=== PATIENT | male | born 1950 | race African-American/Black ===

== ENCOUNTER 2019-08-28 13:34 | Inpatient (IN) | payer MEDICARE, OTHER ==
[2019-08-28] VITALS (246 sets, daily range): BP systolic 143–173; BP diastolic 78–95; PULSE 90–98; TEMP 98.2–98.6; O2SAT 86–100
[~2019-08-28] VITALS: Ht 182.9 cm; Wt 100.3 kg
[2019-08-28] MEDS ORDERED: PROAIR HFA0.09 MG/AC IH (15:31)
[2019-08-28] MEDS ORDERED: NORVASC 10MG10 MG PO (15:31)
[2019-08-28] MEDS ORDERED: IMDUR 30MG30 MG/TAB PO (15:31)
[2019-08-28] MEDS ORDERED: CRESTOR5 MG PO (15:32)
[2019-08-28] MEDS ORDERED: MELATONIN5 M1 SL (15:32)
[2019-08-28 17:14] LABS: RETIC # 0.05 M/mm3 (0.02-0.16); RETIC % 1.5 % (0.5-3.52)
[2019-08-28 17:44] LABS: IRON,SERUM 16 ug/dL (35-150)
[2019-08-28 17:53] LABS: TOTAL IRON BINDING CAPACITY 337 ug/dL (261-462)
--- NOTE | 2019-08-28 18:26 | NUR ---
Assessment completed, alert/oriented, vital signs stable/ afebrile, denies pain, patient is labored breathing/ lungs diminished and coarse, patient was swabbed for COVID screen at [facility] but after assessing and evaluating the patient the Hospitalist said we did not need to isolate the patient and he did not meet criteria to be a PUI, CXR at [facility] confirmed left sided pleural effussion/ orders for thoracentesis 08/29/19 entered, heart RRR/distal pulses are palapble, patient denies other needs at this time
--- NOTE | 2019-08-28 20:11 | NUR ---
Blood transfusion started at 2003. Assessment complete. Right lower lobe and and left lung dimished. Right uppepr lobe clear. Heart sounds normal. Bowels active x4. Pulses present throughout. No edema noted. INT right AC without complications. IV left AC infusing blood without complications at this time. Denies pain. Educated regarding transfusion reactions. Denies needs at this time. Remained at bedside for first 15 mintues. Call light in reach.
--- NOTE | 2019-08-28 22:04 | NUR ---
Patient blood pressures consistently elevated. Patient reports has not taken norvasc 10mg today. Spoke with Pooja Cleveland to give dose now.
--- NOTE | 2019-08-28 22:45 | NUR ---
Transfusion complete at this time. Tolerated well. Denies needs at this time. Call light in reach.
[2019-08-29] VITALS (385 sets, daily range): BP systolic 147–180; BP diastolic 67–90; PULSE 85–98; TEMP 98.2–99.5; O2SAT 79–100
--- NOTE | 2019-08-29 00:07 | NUR ---
Patient systolic BP 162. Clarified with lorenza Patton APRN with patient in 160s. Added order for hydralazine for 170/100. Will monitor.
--- NOTE | 2019-08-29 01:09 | NUR ---
Patient reports inability to sleep. Provided with PRN melatonin. Denies other needs at this time. Call light in reach.
--- NOTE | 2019-08-29 03:30 | NUR ---
Patient continues to have shortness of breath. Attempted oxymask due to mouth breathing. Patient did not tolerate oxymask. Changed back to nasal cannula with humadified oxygen. Assisted patient with nasal clearing. Reports easier to breathe. Denies other needs. Will continue to monitor.
--- NOTE | 2019-08-29 04:42 | NUR ---
Patient blood pressure 177 systolic, rechecked 180. Provided with PRN hydralazine at this time.
--- NOTE | 2019-08-29 06:19 | NUR ---
Patient continued to have shortness of breath throughout night with productive cough (clear thick sputum). Remained on 2 liters nasal cannula with oxygen saturations in mid to high 90s. Given x1 dose of hydralazine for systolic BP of 180. Resting in bed currently. Denies needs at this time. Call light in reach. Will continue to monitor.
[2019-08-29 06:42] LABS: BASO % 0.6 % (0.0-2.0); EOS # 0.2 (0.0-0.7); EOS % 2.7 % (0-4.0); GRAN % 58.1 % (42.2-75.2); LYMPH % 29.1 % (20.0-51.0); MEAN CELL VOLUME 69 fl (80.0-100.0); MEAN CORPUSCULAR HGB CONC 26 g/dl (33.0-37.0); MEAN PLATELET VOLUME 10.4 fl (7.4-10.4); MONO # 0.6 (0.1-0.6); MONO % 8.6 % (1.7-9.3); PLATELET COUNT 298 K/mm3 (130-400); RED BLOOD COUNT 3.33 M/mm3 (4.20-5.60); REDCELL DISTRIBUTION WIDTH-CV 23.3 % (11.5-14.5)
[2019-08-29 06:51] LABS: HEMATOCRIT 22.8 % (42.0-52.0); HEMOGLOBIN 5.9 g/dl (13.5-18.0); MEAN CORPUSCULAR HEMOGLOBIN 18 pg (27.0-31.0)
--- NOTE | 2019-08-29 06:52 | NUR ---
Lab called stating patient HGB 5.9 this AM. Left voicemail for Dr. Orozco requesting call back.
[2019-08-29 06:54] LABS: ALBUMIN 3.6 gm/dL (3.5-5.0); BILIRUBIN,TOTAL 0.5 mg/dL (0.0-1.0); CALCIUM 9.8 mg/dL (8.4-10.2); CREATININE, serum 1.71 (0.66-1.25); POTASSIUM 3.5 mmol/L (3.4-5.0)
--- NOTE | 2019-08-29 06:54 | NUR ---
Spoke with Dr. Orozco-order one unit of PRBC. Will add order and notify lab.
[2019-08-29 06:57] LABS: INR 1.1 (0.8-3.0); PROTHROMBIN TIME 12.8 SECONDS (9.7-12.8)
--- NOTE | 2019-08-29 07:26 | NUR ---
Report given to NIKITA Lowry
[2019-08-29 12:15] LABS: PLEURAL FLUID RBC 1000 /mm3 (0-0); PLEURAL FLUID WBC 650 /mm3
[2019-08-29 12:19] LABS: PLEURAL FLUID APPEARANCE CLEAR; PLEURAL FLUID COLOR YELLOW
[2019-08-29 12:23] LABS: GLUCOSE,PLEURAL FLUID 107 mg/dL; TOTAL PROTEIN,PLEURAL FLUID 4.4 gm/dL
[2019-08-29 17:55] LABS: HEMATOCRIT 27.8 % (42.0-52.0); HEMOGLOBIN 7.6 g/dl (13.5-18.0)
[2019-08-29 18:54] LABS: FOLATE (FOLIC ACID) 5.3 ng/mL (7.0-31.4)
[2019-08-29 19:27] LABS: PROCALCITONIN 0.6 ng/mL (0.00-0.09)
--- NOTE | 2019-08-29 19:47 | NUR ---
Report given to NIKITA Chau
--- NOTE | 2019-08-29 21:00 | NUR ---
Received report from HELPER TEACHER, Rylee at 1946. Pt arrived to medical unit room 309 via WC at 2009. Alert and oriented x4. Ambulatory. C/O pain to left side chest from proceudre, rate 3/10, tolerable. Denies SOB, on 2LO2NC. Tele monitor in place, leads checked. INT to RAC intact, flushed, dressing CDI. IV to LAC intact with fluids infusing, dressing CDI. [place] box given to pt as requested. Needs met at this time. Call light within reach.
[2019-08-30] VITALS (7 sets, daily range): BP systolic 134–164; BP diastolic 57–79; PULSE 85–101; TEMP 98–99.1
--- NOTE | 2019-08-30 06:12 | NUR ---
Pt had episode of bloody stool with moderate amount of bright red blood observed in toilet and tissue. Will endorse to oncoming RN. Scheduled meds adminsitered. Needs attended too. Call light within reach.
[2019-08-30 06:55] LABS: BASO % 0.5 % (0.0-2.0); EOS # 0.2 (0.0-0.7); EOS % 2.7 % (0-4.0); GRAN # 4.5 (1.4-6.5); GRAN % 54.9 % (42.2-75.2); LYMPH # 2.8 (1.2-3.4); LYMPH % 33.6 % (20.0-51.0); MEAN CELL VOLUME 71 fl (80.0-100.0); MEAN CORPUSCULAR HGB CONC 27 g/dl (33.0-37.0); MONO # 0.6 (0.1-0.6); MONO % 7.7 % (1.7-9.3); PLATELET COUNT 294 K/mm3 (130-400); RED BLOOD COUNT 4.11 M/mm3 (4.20-5.60); REDCELL DISTRIBUTION WIDTH-CV 24.6 % (11.5-14.5)
[2019-08-30 07:04] LABS: CREATININE, serum 1.76 (0.66-1.25); MAGNESIUM 1.7 mg/dL (1.6-2.3); POTASSIUM 3.8 mmol/L (3.4-5.0)
--- NOTE | 2019-08-30 07:19 | NUR ---
Report given to NIKITA Kumar.
[2019-08-30 07:22] LABS: HEMATOCRIT 29.1 % (42.0-52.0); HEMOGLOBIN 7.8 g/dl (13.5-18.0); MEAN CORPUSCULAR HEMOGLOBIN 19 pg (27.0-31.0)
--- NOTE | 2019-08-30 10:43 | NUR ---
Manufacturing Lead met with patient to discuss discharge planning. Patient lives alone in [place]. Patient states he receives primary care and his medications from [facility]. Patient could not remember the name of his PCP. Patient does not use any DME and reports independence with ADLS. Patient is not sure if he has DPOA-HC. Patient states he does not have an emergency contact and that "it's just him". Patient states that he plans to return home upon discharge but would need a ride to [facility] to pickling drum operator his car. Patient states he has no one that could pickling drum operator and denies having any family or friends in the area. Patient state he does have money and could afford a cab, depending on the [place] point. SW will continue to follow and will assist in securing a cab when patient discharges if needed.
--- NOTE | 2019-08-30 14:33 | NUR ---
Pt assessment completed and charted. Medications have been administered per MAR. Pt is A&O, independent in room. Pt has RAC and LAC IV. LAC IV w/ NS @ 75ml/hr, no complications. Stool occult and UA collected. Pt denies pain, chest pain, dizziness, SOB, N/V. Episodes of diarrhea were reported early this morning prior to shift change, this nurse has not witnessed. Per DELINQUENCY PREVENTION OFFICER, BM that was collected for stool occult was brown, soft and loose, no blood noted. No other concerns expressed at this time.
[2019-08-30 14:56] LABS: PH 6 (5-8); SQUAMOUS EPITHELIAL 0-2 /hpf; URINE APPEARANCE Clear; URINE BACTERIA None Seen /hpf; URINE BILIRUBIN Negative (NEGATIVE); URINE BLOOD Negative (NEGATIVE); URINE COLOR Yellow; URINE GLUCOSE 1+ (NEGATIVE); URINE KETONE Negative (NEGATIVE); URINE LEUKOCYTE ESTERASE Negative (NEGATIVE); URINE NITRATE Negative (NEGATIVE); URINE PROTEIN(semi-quant) 1+ (NEGATIVE); URINE RBC 0-2 /hpf; URINE UROBILINOGEN Negative (NEGATIVE)
[2019-08-30 17:25] LABS: HEMATOCRIT 26.6 % (42.0-52.0); HEMOGLOBIN 7.1 g/dl (13.5-18.0)
--- NOTE | 2019-08-30 20:03 | NUR ---
Received report from NIKITA Kumar. Alert and oriented x4. PT sleeping in bed upon entry, easily arousbale. Denies any pain or discomfort, states feeling tired. Scheduled meds administered. Denies SOB, on RA. Per RT pt refusing to wear O2 at this time, LCTAB. Tele monitor in place, leads checked. INT to RAC intact, flushed, dressing changed, CDI. IV to LAC intact, with fluids infusing, dressing CDI. Needs met at this time. Will monitor pt. Call light within reach.
--- NOTE | 2019-08-30 22:48 | NUR ---
Pt sitting up on side of bed eating sandwich. Needs met at this time. Urinal emptied and documented. Call light within reach. Pt voiced no concerns at this time.
--- NOTE | 2019-08-30 23:55 | NUR ---
Tele called this RN requesting EKG for possible AFIB, telephone advice nurse unable to see 'p wave.' EKG ordered and done by RT. EKG showed Sinus bradycardia. This was reported to telephone advice nurse. Pt asymptomatic, voices no concern.
[2019-08-31 01:10] LABS: COLLECTION METHOD CLEAN CATCH
[2019-08-31 02:59] VITALS: BP 155/68; PULSE 87; TEMP 99.4
--- NOTE | 2019-08-31 05:38 | NUR ---
Pt made no complaints during the night. Needs met. Call light within reach. Meds adminsitered.
--- NOTE | 2019-08-31 06:38 | NUR ---
Report given to NIKITA Kumar.
[2019-08-31 06:41] LABS: BASO # 0.1 (0.0-0.2); BASO % 0.6 % (0.0-2.0); EOS # 0.3 (0.0-0.7); EOS % 3.6 % (0-4.0); GRAN # 4.5 (1.4-6.5); GRAN % 55.9 % (42.2-75.2); LYMPH # 2.5 (1.2-3.4); LYMPH % 31.5 % (20.0-51.0); MEAN CELL VOLUME 71 fl (80.0-100.0); MEAN CORPUSCULAR HGB CONC 27 g/dl (33.0-37.0); MEAN PLATELET VOLUME 10.6 fl (7.4-10.4); MONO # 0.6 (0.1-0.6); MONO % 7.9 % (1.7-9.3); PLATELET COUNT 280 K/mm3 (130-400); RED BLOOD COUNT 3.93 M/mm3 (4.20-5.60); REDCELL DISTRIBUTION WIDTH-CV 24.8 % (11.5-14.5)
[2019-08-31 06:45] LABS: HEMOGLOBIN 7.5 g/dl (13.5-18.0); MEAN CORPUSCULAR HEMOGLOBIN 19 pg (27.0-31.0)
[2019-08-31 06:52] LABS: CALCIUM 9.6 mg/dL (8.4-10.2); CREATININE, serum 1.71 (0.66-1.25); POTASSIUM 3.6 mmol/L (3.4-5.0)
[2019-08-31 07:00] VITALS: BP 160/80; PULSE 93; TEMP 98.2
--- NOTE | 2019-08-31 09:09 | NUR ---
Pt assessment completed and charted. Medications administered per MAR. Pt sitting on EOB. Pt is A&O, independent in room, on room air, denies SOB. Pt has IVF running to LAC IV at 75ml/hr w/o complications. RAC INT IV flushes w/o difficulty. Lt mid back has bandaid, CDI, from thoracentesis. Pt denies any pain, dizziness, SOB, N/V/. Pt states he still has diarrhea, "same as yesterday, this nurse has not seen any BMs. Will monitor. No further needs at this time.
[2019-08-31] MEDS ORDERED: OMNICEF 300MG300 MG PO (10:08)
[2019-08-31] MEDS ORDERED: COREG 6.256.25 MG/TA PO (10:09)
[2019-08-31] MEDS ORDERED: FERRO-TIME325 MG PO (10:09)
[2019-08-31] MEDS ORDERED: FOLIC ACID 11 MG/TA1 PO (10:09)
[2019-08-31 11:32] VITALS: BP 154/68; PULSE 88; TEMP 98.1
--- NOTE | 2019-08-31 12:58 | NUR ---
Pt discharge instructions discussed and reviewed w/ patient who verbalized understanding. All questions answered, no other concerns expressed. RAC and LAC INT IV dc'd w/ catheter tips intact and no complications. Awaiting SW to arrange cab ride for pt to [facility] where his car is. trim crew supervisor notifed about pt wallet in safe, will obtain.
--- NOTE | 2019-08-31 13:39 | NUR ---
Pt negin obtained from [employer], given to patient. Still awaiting ride from cab, discussing with TWIN.
--- NOTE | 2019-08-31 14:03 | NUR ---
Stretcher Operator notified that patient needs a ride to his car. TWIN attempted to contact [employer] with no sucess. TWIN contacted Deniz at [employer] who advised he can take patient to [facility] for $40. Patient states he can afford this. TWIN arranged for [employer] to hop picker patient in ER. TWIN provided this information to RNStacy. No additional needs at this time.
--- NOTE | 2019-08-31 14:42 | NUR ---
Pt discharged, escorted out via WC by DEISI Alba. Cab arrived to ER entrance, phoned this nurse. No further needs.
== END 2019-08-31 14:42 | disposition home or self-care (01) | DRG 186 ==
LOC: ICU 13:34 → IMCU 14:29 → MEDICAL 08-29 19:31
PROVIDERS: Nurse Practitioner Family; Physician Assistant; Student in an Organized Health Care Education/Training Program; ADMIT Hospitalist
PROC: 0W9B3ZZ Drainage of Left Pleural Cavity, Percutaneous Approach (ICD-10-PCS; principal; 2019-08-29)
DX: J90 Pleural effusion, not elsewhere classified (principal); J18.9 Pneumonia, unspecified organism; N17.9 Acute kidney failure, unspecified; F17.210 Nicotine dependence, cigarettes, uncomplicated; D64.9 Anemia, unspecified; I10 Essential (primary) hypertension; E78.5 Hyperlipidemia, unspecified; K76.9 Liver disease, unspecified; D50.9 Iron deficiency anemia, unspecified; G47.00 Insomnia, unspecified; Z88.8 Allergy status to other drugs, medicaments and biological substances; H05.20 Unspecified exophthalmos; R91.8 Other nonspecific abnormal finding of lung field; N18.9 Chronic kidney disease, unspecified
CPT/HCPCS: 99223-AI; 99232-AI; 99239; A4216; J0360; J0696; J7030; P9016

== ENCOUNTER 2019-10-03 07:19 | Outpatient (CLI) | payer MEDICARE, OTHER ==
[~2019-10-03] VITALS: Ht 182.9 cm; Wt 100.9 kg
[~2019-10-03 07:19] MED LIST: COREG 6.256.25 MG/TA PO; CRESTOR5 MG PO; FERRO-TIME325 MG PO; FOLIC ACID 11 MG/TA1 PO; IMDUR 30MG30 MG/TAB PO; MELATONIN5 M1 SL; NORVASC 10MG10 MG PO; OMNICEF 300MG300 MG PO; PROAIR HFA0.09 MG/AC IH
[2019-10-03 07:54] VITALS: BP 170/81; PULSE 95; TEMP 98.5
[2019-10-03] MEDS ORDERED: CRESTOR5 MG PO (08:00)
[2019-10-03] MEDS ORDERED: AMOXICILLIN 8751 TAB PO (08:02)
[2019-10-03] MEDS ORDERED: IRON TABLETS325 MG PO (08:02)
[2019-10-03] MEDS ORDERED: FOLIC ACID 11 MG/TA1 PO (08:02)
[2019-10-03] MEDS ORDERED: [UNRECOGNIZED DRUG - OTHER] PO (08:04)
[2019-10-03] MEDS ORDERED: SAW PALMETTO S450 MG PO (08:04)
[2019-10-03] MEDS ORDERED: VITAMIN D 1001000 IU PO (08:05)
[2019-10-03] MEDS ORDERED: THE MEDICINE S200 M2 PO (08:05)
[2019-10-03] MEDS ORDERED: NATURAL POTASS595 MG PO (08:05)
[2019-10-03] MEDS ORDERED: COLLAGEN PO (08:06)
[2019-10-03] MEDS ORDERED: KOREAN PANAX GINSENG PO (08:06)
[2019-10-03] MEDS ORDERED: MUCINEX 60600 MG/TA1 PO (08:07)
[2019-10-03] MEDS ORDERED: GINKGO PO (08:08)
[2019-10-03] MEDS ORDERED: [UNRECOGNIZED DRUG - OTHER] PO (08:08)
[2019-10-03] MEDS ORDERED: [UNRECOGNIZED DRUG - OTHER] PO (08:09)
[2019-10-03] MEDS ORDERED: GARCINIA CAMBOGIA PO (08:09)
[2019-10-03] MEDS ORDERED: [UNRECOGNIZED DRUG - OTHER] PO (08:09)
[2019-10-03] MEDS ORDERED: HERBAL LAXATIVE PO (08:10)
[2019-10-03 09:45] VITALS: BP 138/86; PULSE 92; TEMP 98.4
--- NOTE | 2019-10-03 09:45 | NUR ---
The patient returned to [place] [facility] from the [facility] at this time. The patient appears alert and oriented and denies any pain or nausea at this time. Post procedure vital signs were started at this time. Call light is within reach. The patient has an order to have a CT of chest without contrast and the staff in CT was notified and will call the nurse when they are on their way to come get the patient for the procedure.
[2019-10-03 09:59] VITALS: BP 163/77; PULSE 89
--- NOTE | 2019-10-03 10:00 | NUR ---
Vital signs appears stable. The patient has an intermittent cough and was given some klenex for sputum he is coughing up. Call light is within reach. Will continue to monitor the patient.
[2019-10-03 10:12] VITALS: BP 143/80; PULSE 88
--- NOTE | 2019-10-03 10:13 | NUR ---
The patient ambulated to the bathroom independently using a steady gait and apepared to tolerate the activity well. The patient's vital signs continue to appear stable. The patient was taken via cart to CT scan to have the chest scan does as ordered. Will continue to monitor the patient he returns to the unit.
--- NOTE | 2019-10-03 10:21 | NUR ---
The patient arrived back to [facility] [address] at this time. Dr. Enciso was called to notify him that the scan has been completed and he gave the ok to discharge the patient home. The nurse is to notify the patient that Dr. Enciso will call him tomorrow with all the offical results of the CT scan.
--- NOTE | 2019-10-03 10:25 | NUR ---
Discharge instructions were reviewed with the patient at this time. He verbalized understanding and has no questions for the nurse at this time. The patient is going to get dressed and notify the staff when he is ready to be escorted out.
--- NOTE | 2019-10-03 10:30 | NUR ---
The patient was escorted out via ambulation to his private vehicle at this time. The patient did not receive sedation and therefore will be driving himself home. Discharge instructions and belongings were sent with the patient.
[2019-10-03 10:58] LABS: GLUCOSE,PLEURAL FLUID 117 mg/dL; TOTAL PROTEIN,PLEURAL FLUID 5.3 gm/dL
[2019-10-03 10:59] LABS: PLEURAL FLUID COLOR YELLOW
[2019-10-03 11:00] LABS: PLEURAL FLUID APPEARANCE CLOUDY
[2019-10-03 11:03] LABS: PLEURAL FLUID RBC 1000 /mm3 (0-0); PLEURAL FLUID WBC 630 /mm3
== END 2019-10-03 10:30 | disposition home or self-care (01) ==
LOC: SDCO 07:19
PROVIDERS: Internal Medicine Pulmonary Disease
DX: J90 Pleural effusion, not elsewhere classified (principal); E78.5 Hyperlipidemia, unspecified; F41.9 Anxiety disorder, unspecified; F17.210 Nicotine dependence, cigarettes, uncomplicated; G47.00 Insomnia, unspecified; I12.9 Hypertensive chronic kidney disease with stage 1 through stage 4 chronic kidney disease, or unspecified chronic kidney disease; N18.9 Chronic kidney disease, unspecified; D63.1 Anemia in chronic kidney disease; R59.0 Localized enlarged lymph nodes
CPT/HCPCS: 19804